=== PATIENT | female | born 1945 | race Caucasian/White ===

== ENCOUNTER 2016-08-19 10:50 | Outpatient (CLI) | payer MEDICARE, OTHER | END 2016-08-19 10:51 | disposition home or self-care (01) | DX: I12.9 Hypertensive chronic kidney disease with stage 1 through stage 4 chronic kidney disease, or unspecified chronic kidney disease (principal); Z79.899 Other long term (current) drug therapy; N18.9 Chronic kidney disease, unspecified; M25.50 Pain in unspecified joint; M85.80 Other specified disorders of bone density and structure, unspecified site; E78.5 Hyperlipidemia, unspecified; E03.9 Hypothyroidism, unspecified; M10.9 Gout, unspecified; R25.1 Tremor, unspecified ==

== ENCOUNTER 2016-09-01 09:49 | Outpatient (CLI) | payer MEDICARE, OTHER | END 2016-09-01 09:50 | disposition home or self-care (01) | DX: Z71.3 Dietary counseling and surveillance (principal); N18.3 Chronic kidney disease, stage 3 (moderate); Z68.42 Body mass index [BMI] 45.0-49.9, adult ==

== ENCOUNTER 2016-09-26 | Outpatient (CLI) | payer MEDICARE, OTHER | END 2016-09-26 10:08 | disposition home or self-care (01) ==

== ENCOUNTER 2016-10-07 10:58 | Outpatient (CLI) | payer MEDICARE, OTHER | END 2016-10-07 10:59 | disposition home or self-care (01) | DX: N18.9 Chronic kidney disease, unspecified (principal) ==

== ENCOUNTER 2017-10-16 09:57 | Outpatient (CLI) | payer MEDICARE, OTHER ==
[2017-10-16 10:17] LABS: BASOPHILS # (AUTO) 0.1 10^3/uL (0.0-0.1); BASOPHILS % (AUTO) 0.9 %; EOSINOPHILS # (AUTO) 0.4 10^3/uL (0.0-0.7); EOSINOPHILS % (AUTO) 5.6 %; HGB - HEMOGLOBIN 14.4 g/dL (12.0-16.0); LYMPHOCYTES # (AUTO) 1.5 10^3/uL (1.5-3.5); LYMPHOCYTES % (AUTO) 20.3 %; MEAN CORPUSCULAR HEMOGLOBIN 29.5 pg (27.0-31.0); MEAN CORPUSCULAR VOLUME 89.4 fL (81.0-99.0); MEAN PLATELET VOLUME 9.1 fL (7.9-10.8); MONOCYTES # (AUTO) 0.7 10^3/uL (0.0-1.0); MONOCYTES % (AUTO) 9.2 %; NEUTROPHILS # (AUTO) 4.6 10^3/uL (1.5-6.6); PLT - PLATELET COUNT 171 10^3/uL (130-450); RED BLOOD COUNT 4.88 10^6/uL (4.20-5.40); RED CELL DISTRIBUTION WIDTH 16.6 % (12.0-15.0); WHITE BLOOD COUNT 7.2 x10^3/uL (4.8-10.8)
[2017-10-16 10:44] LABS: ALBUMIN/GLOBULIN RATIO 1.2 (1.0-2.2); ALKALINE PHOSPHATASE 64 IU/L (42-121); ALT ALANINE AMINOTRANSFERASE 15 IU/L (10-60); AMYLASE 89 U/L (28-100); AST ASPARTATE AMINOTRANSFERASE 22 IU/L (10-42); BILIRUBIN,TOTAL 1.1 mg/dL (0.2-1.0); BUN - BLOOD UREA NITROGEN 27 mg/dL (6-20); CALCIUM 9.4 mg/dL (8.5-10.3); CARBON DIOXIDE - CO2 23 mmol/L (21-32); CHLORIDE 106 mmol/L (101-111); CHOL/HDL RATIO 4.8 (<4.4); CHOLESTEROL 221 mg/dL; CREATININE 1.3 mg/dL (0.4-1.0); GFR - MDRD 40 (>89); GLUCOSE 100 mg/dL (70-100); HDL CHOLESTEROL 46 mg/dL; LDL CHOLESTEROL,CALCULATED 154 mg/dL; LDL/HDL RATIO 3.3 (<4.4); LIPASE 35 U/L (22-51); SODIUM 137 mmol/L (135-145); TOTAL PROTEIN 7.4 g/dL (6.7-8.2); URIC ACID 4.7 mg/dL (2.6-7.2); VLDL CHOLESTEROL 21 mg/dL
[2017-10-16 10:54] LABS: BILIRUBIN,URINE NEGATIVE (NEGATIVE); GLUCOSE, URINE (UA) NEGATIVE (NEGATIVE); KETONES,URINE (UA) NEGATIVE (NEGATIVE); LEUKOCYTE ESTERASE, URINE NEGATIVE (NEGATIVE); NITRITE,URINE NEGATIVE (NEGATIVE); OCCULT BLOOD,URINE TRACE-LYSE (NEGATIVE); PH,URINE 5.5 PH (5.0-7.5); PROTEIN,URINE NEGATIVE (NEGATIVE); UROBILINOGEN,URINE 0.2 (NORMAL) E.U./dL (NORMAL)
[2017-10-16 10:55] LABS: CLARITY,URINE CLEAR (CLEAR)
== END 2017-10-16 09:58 | disposition home or self-care (01) ==
LOC: LAB 09:57
PROVIDERS: ATTEND Internal Medicine
DX: N18.9 Chronic kidney disease, unspecified (principal); Z12.11 Encounter for screening for malignant neoplasm of colon; Z12.12 Encounter for screening for malignant neoplasm of rectum; Z79.899 Other long term (current) drug therapy; M23.50 Chronic instability of knee, unspecified knee; E55.9 Vitamin D deficiency, unspecified; E78.3 Hyperchylomicronemia; E03.9 Hypothyroidism, unspecified; M10.9 Gout, unspecified; R10.9 Unspecified abdominal pain; R11.2 Nausea with vomiting, unspecified; I12.9 Hypertensive chronic kidney disease with stage 1 through stage 4 chronic kidney disease, or unspecified chronic kidney disease
CPT/HCPCS: 36415; 80053; 80061; 81001; 81003; 82150; 83690; 83721; 84443; 84550; 85025; 87086

== ENCOUNTER 2017-10-19 12:40 | Outpatient (CLI) | payer MEDICARE, OTHER ==
--- NOTE | 2017-10-20 17:51 | Mammography Report ---
DIGITAL SCREENING MAMMOGRAM: 10/19/2017 CLINICAL INDICATION: A 71-year-old with a family history of breast cancer for screening. COMPARISON: 08/2015, 08/2014, 06/2013, 03/2012. TECHNIQUE: Routine CC and MLO projections were obtained of the breasts. FINDINGS: The breasts demonstrate scattered fibroglandular densities bilaterally. In the right inner anterior breast, there is a possible circumscribed nodule. Further evaluation with spot compression views and possible ultrasound is recommended. No mammographically suspicious findings are appreciated in the left breast. IMPRESSION: INCOMPLETE EXAMINATION. RECOMMENDATION: Additional evaluation of the right breast as above. BIRADS category 0 incomplete. STANDARD QUALIFYING STATEMENTS 1. This examination was reviewed with the aid of Computed-Aided Detection (CAD). 2. A negative or benign imaging report should not delay biopsy if clinically suspicious findings are present. Consider surgical consultation if warranted. More than 5% of cancers are not identified by imaging. 3. Dense breasts may obscure an underlying neoplasm. TD: 10/20/2017 17:50
== END 2017-10-19 12:41 | disposition home or self-care (01) ==
LOC: DI 12:40
PROVIDERS: ATTEND Internal Medicine
DX: Z12.31 Encounter for screening mammogram for malignant neoplasm of breast (principal); R92.8 Other abnormal and inconclusive findings on diagnostic imaging of breast; Z80.3 Family history of malignant neoplasm of breast
CPT/HCPCS: 77067

== ENCOUNTER 2017-10-28 18:58 | Outpatient (CLI) | payer MEDICARE, OTHER ==
--- NOTE | 2017-10-29 10:48 | Ultrasound Report ---
COMPLETE ABDOMINAL ULTRASOUND: 10/28/2017 CLINICAL INDICATION: Pain. TECHNIQUE: Real-time scanning was performed with enrollment representative static images obtained. FINDINGS: The liver measures 13.6 cm. Hepatic echogenicity is increased, compatible with fatty infiltration. No focal parenchymal lesion or intrahepatic biliary dilatation is seen. The common bile duct measures 7 mm. Multiple calculi are seen in an otherwise unremarkable gallbladder. The pancreas is obscured by bowel gas. The right kidney measures 11.9 cm, and demonstrates a 5.6 cm cyst. No hydronephrosis is present. The left kidney measures 9.3 cm, and appears unremarkable. The spleen measures 11.1 cm, and demonstrates normal echotexture. The abdominal aorta is normal in caliber. The inferior vena cava is unremarkable. No free fluid is present. IMPRESSION: CHOLELITHIASIS, WITHOUT EVIDENCE OF ACUTE CHOLECYSTITIS OR BILIARY DILATATION. FATTY INFILTRATION OF THE LIVER. INCIDENTAL RIGHT RENAL CYST. TD: 10/29/2017 10:47
== END 2017-10-28 18:59 | disposition home or self-care (01) ==
LOC: DI 18:58
PROVIDERS: ATTEND Internal Medicine
DX: K80.20 Calculus of gallbladder without cholecystitis without obstruction (principal); K76.0 Fatty (change of) liver, not elsewhere classified
CPT/HCPCS: 76700

== ENCOUNTER 2018-01-19 10:07 | Outpatient (CLI) | payer MEDICARE, OTHER ==
--- NOTE | 2018-01-19 12:09 | Mammography Report ---
Procedure Date: 01/19/2018 Accession Number: [id number] / [id number] Procedure: SHANNON - Diag Special Views Dig RT CPT Code: FULL RESULT: EXAM: ADDITIONAL MAMMOGRAPHIC VIEWS RIGHT BREAST AND RIGHT BREAST ULTRASOUND DATE: 01/19/2018 10:43 AM CLINICAL HISTORY: Follow-up abnormal density right breast on mammogram of 10/19/2017 TECHNIQUE: Unilateral right spot CC and MLO projections and a true lateral projection. Real-time ultrasound scanning of the right breast with saved static images reviewed. COMPARISON: 10/19/2017 FINDINGS: Right mammogram: The nodular density described on the prior mammogram report persists on additional views. Right breast ultrasound: Scanning is performed of the right breast from the 12 to 2:00 position. Corresponding to the mammographic abnormality in the 2:00 position 4 cm from the nipple is a 5 x 3 x 5 mm simple cyst. An additional simple cyst is seen in the 12:30 position 5 cm from the nipple measuring 3 mm in diameter. No solid masses are seen. IMPRESSION: Benign findings right breast RECOMMENDATION: Return to routine screening in 12 months. BIRADS CATEGORY 2: Benign findings STANDARD QUALIFYING STATEMENTS: 1. This examination was reviewed with the aid of Computer-Aided Detection (CAD). 2. A negative or benign imaging report should not delay biopsy if clinically suspicious findings are present. Consider surgical consultation if warrented. More than 5% of cancers are not identified by imaging. 3. Dense breasts may obscure an underlying neoplasm.
== END 2018-01-19 10:08 | disposition home or self-care (01) ==
LOC: DI 10:07
PROVIDERS: ATTEND Internal Medicine
DX: N60.11 Diffuse cystic mastopathy of right breast (principal)
CPT/HCPCS: 76642

== ENCOUNTER 2018-11-10 10:50 | Outpatient (CLI) | payer MEDICARE, OTHER ==
[2018-11-10 11:08] LABS: BASOPHILS # (AUTO) 0.1 10^3/uL (0.0-0.1); EOSINOPHILS # (AUTO) 0.2 10^3/uL (0.0-0.7); EOSINOPHILS % (AUTO) 2.9 %; HGB - HEMOGLOBIN 13.7 g/dL (12.0-16.0); LYMPHOCYTES # (AUTO) 1.3 10^3/uL (1.5-3.5); LYMPHOCYTES % (AUTO) 20.4 %; MEAN CORPUSCULAR HEMOGLOBIN 28.3 pg (27.0-31.0); MEAN CORPUSCULAR HGB CONC 32.2 g/dL (32.0-36.0); MEAN CORPUSCULAR VOLUME 87.9 fL (81.0-99.0); MEAN PLATELET VOLUME 8.7 fL (7.9-10.8); MONOCYTES # (AUTO) 0.6 10^3/uL (0.0-1.0); MONOCYTES % (AUTO) 10.2 %; NEUTROPHILS # (AUTO) 4.1 10^3/uL (1.5-6.6); NEUTROPHILS % (AUTO) 64.5 %; PLT - PLATELET COUNT 179 10^3/uL (130-450); RED BLOOD COUNT 4.83 10^6/uL (4.20-5.40); RED CELL DISTRIBUTION WIDTH 16.4 % (12.0-15.0); WHITE BLOOD COUNT 6.3 x10^3/uL (4.8-10.8)
[2018-11-10 11:13] LABS: BILIRUBIN,URINE NEGATIVE (NEGATIVE); GLUCOSE, URINE (UA) NEGATIVE (NEGATIVE); KETONES,URINE (UA) NEGATIVE (NEGATIVE); LEUKOCYTE ESTERASE, URINE NEGATIVE (NEGATIVE); NITRITE,URINE NEGATIVE (NEGATIVE); OCCULT BLOOD,URINE TRACE-INTA (NEGATIVE); PROTEIN,URINE NEGATIVE (NEGATIVE); UROBILINOGEN,URINE 0.2 (NORMAL) E.U./dL (NORMAL)
[2018-11-10 11:15] LABS: CLARITY,URINE CLEAR (CLEAR)
[2018-11-10 11:33] LABS: ALBUMIN 3.8 g/dL (3.2-5.5); ALBUMIN/GLOBULIN RATIO 1.2 (1.0-2.2); ALKALINE PHOSPHATASE 65 IU/L (42-121); ALT ALANINE AMINOTRANSFERASE 16 IU/L (10-60); AST ASPARTATE AMINOTRANSFERASE 22 IU/L (10-42); BILIRUBIN,TOTAL 1.6 mg/dL (0.2-1.0); BUN - BLOOD UREA NITROGEN 23 mg/dL (6-20); CALCIUM 9.5 mg/dL (8.5-10.3); CARBON DIOXIDE - CO2 25 mmol/L (21-32); CHLORIDE 104 mmol/L (101-111); CHOL/HDL RATIO 4.7 (<4.4); CHOLESTEROL 218 mg/dL; CREATININE 1.2 mg/dL (0.4-1.0); GFR - MDRD 44 (>89); GLUCOSE 106 mg/dL (70-100); HDL CHOLESTEROL 46 mg/dL; LDL CHOLESTEROL,CALCULATED 140 mg/dL; MAGNESIUM 1.9 mg/dL (1.7-2.8); SODIUM 137 mmol/L (135-145); TOTAL PROTEIN 7.1 g/dL (6.7-8.2); URIC ACID 4.8 mg/dL (2.6-7.2); VLDL CHOLESTEROL 32 mg/dL
== END 2018-11-10 10:51 | disposition home or self-care (01) ==
LOC: LAB 10:50
PROVIDERS: ATTEND Internal Medicine
DX: Z12.11 Encounter for screening for malignant neoplasm of colon (principal); Z79.899 Other long term (current) drug therapy; Z12.12 Encounter for screening for malignant neoplasm of rectum; Z13.6 Encounter for screening for cardiovascular disorders; K76.0 Fatty (change of) liver, not elsewhere classified; N18.9 Chronic kidney disease, unspecified; R23.1 Pallor; E78.5 Hyperlipidemia, unspecified; E03.9 Hypothyroidism, unspecified; M10.9 Gout, unspecified; R25.2 Cramp and spasm; I12.9 Hypertensive chronic kidney disease with stage 1 through stage 4 chronic kidney disease, or unspecified chronic kidney disease
CPT/HCPCS: 36415; 80053; 80061; 81001; 81003; 83721; 83735; 84443; 84550; 85025; 87086

== ENCOUNTER 2018-11-17 08:00 | Outpatient (CLI) | payer MEDICARE, OTHER | END 2018-11-17 23:59 | disposition home or self-care (01) | LOC: LAB.R 08:00 | PROVIDERS: ATTEND Internal Medicine | DX: Z12.11 Encounter for screening for malignant neoplasm of colon (principal); Z12.12 Encounter for screening for malignant neoplasm of rectum; I10 Essential (primary) hypertension; E78.5 Hyperlipidemia, unspecified; N18.9 Chronic kidney disease, unspecified; R25.2 Cramp and spasm; K76.0 Fatty (change of) liver, not elsewhere classified; Z13.6 Encounter for screening for cardiovascular disorders; E03.9 Hypothyroidism, unspecified; M10.9 Gout, unspecified; R23.1 Pallor; Z79.899 Other long term (current) drug therapy | CPT/HCPCS: 82274 ==

== ENCOUNTER 2019-09-29 08:01 | Day surgery (SDC) | payer MEDICARE, OTHER ==
[~2019-09-29 08:01] MED LIST: BRIMONIDINE 0.2% OPHTH DROPS 5 ML ONE; BSS/LIDOCAINE/EPINEPHRINE 1 ML SYRINGE ONE; CYCLOPENTOLATE 1% OPHTH DROPS 2 ML ONE; KETOROLAC 0.45% OPHTH DROPS ONE; PHENYLEPHRINE 2.5% OPHTH 2 ML DROPS ONE; PROPARACAINE 0.5% OPHTH DROPS 15 ML ONE; TRIAMCIN/MOXIFLOX OPHTHALMIC 0.6 ML VIAL IO ONE; VANCOMYCIN OPHTHALMI 8MG/0.8ML 8 MG/0.8 ML SYRINGE IO ONE; timoloL maleate 0.5% OPHTH DROPS (10ML) ONE
[2019-09-29] MEDS ORDERED: LACTATED RINGERS 500 ML IV ONE (08:46)
[2019-09-29] MEDS ORDERED: CYCLOPENTOLATE 1% OPHTH DROPS 2 ML RIGHTEYE ONE (09:00)
[2019-09-29] MEDS ORDERED: KETOROLAC 0.45% OPHTH DROPS RIGHTEYE ONE (09:00)
[2019-09-29] MEDS ORDERED: PROPARACAINE 0.5% OPHTH DROPS 15 ML RIGHTEYE ONE ×2 (09:00→09:56)
[2019-09-29] MEDS ORDERED: PHENYLEPHRINE 2.5% OPHTH 2 ML DROPS RIGHTEYE ONE (09:00)
--- NOTE | 2019-09-29 09:14 | ANESTHESIA ---
Pre-Anesthesia VS, & Labs - Diagnosis Right senile combined cataract - Procedure Right phaco with IOL implant Height 4 ft 11 in Body Mass Index 44.4 - NPO Other (Water at 0800) - Is Patient ?: No Home Medications and Allergies Home Medications: Ambulatory Orders Allopurinol [Zyloprim] 100 mg PO DAILY 09/28/19 Levothyroxine [Synthroid] 75 mcg PO DAILY 09/28/19 Losartan [Cozaar] 50 mg PO DAILY 09/28/19 Metoprolol Succinate [Toprol Xl] 25 mg PO BID 09/28/19 cloNIDine [Catapres] 0.1 mg PO BID 09/28/19 Allopurinol [Zyloprim] 100 mg PO DAILY 09/28/19 Levothyroxine [Synthroid] 75 mcg PO DAILY 09/28/19 Losartan [Cozaar] 50 mg PO DAILY 09/28/19 Metoprolol Succinate [Toprol Xl] 25 mg PO BID 09/28/19 cloNIDine [Catapres] 0.1 mg PO BID 09/28/19 Allergies/Adverse Reactions: Allergies Allergy/AdvReac Type Severity Reaction Status Date / Time Sulfa (Sulfonamide AdvReac Unknown Verified 09/28/19 14:03 Antibiotics) Anes History & Medical History - Anesthetic History Anesthesia Complications: reports: No previous complications Family history of Anesthesia Complications: Denies Family history of Malignant Hyperthermia: Denies - Medical History Cardiovascular: reports: Hypertension Pulmonary: reports: None Gastrointestinal: reports: None Urinary: reports: Incontinence Neuro: reports: None Musculoskeletal: reports: Osteoarthritis Endocrine/Autoimmune: reports: HyPOthyroidism Blood Disorders: reports: None Skin: reports: None Smoking Status: Former smoker - Surgical History General: Cholecystectomy Eyes Ears Nose Throat (EENT): Tonsil/Adenoidectomy Gynecologic: Hysterectomy Exam General: Alert Dental: WNL, Partials Upper Mouth Opening: Greater than 4 Fingerbreadths Neck Mobility: Normal Mallampati classification: I Thyromental Distance: greater than 6 cm Respiratory: Lungs clear Cardiovascular: Regular rate Neurological: Normal speech Mental/Cognitive Status: Alert/Oriented X3 Cognitive Status: Within normal limits Plan Anesthesia Type: MAC Consent for Procedure(s) Verified and Reviewed: Yes Code Status: Attempt Resuscitation ASA classification: 2-Mild systemic disease Is this case an emergency?: No
[2019-09-29] MEDS ORDERED: MIDAZOLAM 2 MG/2 ML VIAL IVP ONE (09:43)
[2019-09-29] MEDS ORDERED: LIDOCAINE-MPF 2% 5 ML VIAL IM ONE (09:43)
[2019-09-29] MEDS ORDERED: PROPOFOL 200 MG/20 ML VIAL IVP ONE (09:43)
[2019-09-29] MEDS ORDERED: EPINEPHrine 1 MG/ML AMP IVP ONE (09:54)
[2019-09-29] MEDS ORDERED: BRIMONIDINE 0.2% OPHTH DROPS 5 ML OPTH ONE (09:54)
[2019-09-29] MEDS ORDERED: CHONDR SULF/HYALURONATE SYRINGE IO ONE (09:55)
[2019-09-29] MEDS ORDERED: BSS/LIDOCAINE/EPINEPHRINE 1 ML SYRINGE IO ONE (09:55)
[2019-09-29] MEDS ORDERED: TIMOLOL 0.5% OPHTH DROPS OPTH ONE (09:55)
[2019-09-29] MEDS ORDERED: TRIAMCIN/MOXIFLOX OPHTHALMIC 0.6 ML VIAL IO ONE (09:56)
[2019-09-29] MEDS ORDERED: VANCOMYCIN OPHTHALMI 8MG/0.8ML 8 MG/0.8 ML SYRINGE IO ONE (09:56)
[2019-09-29] MEDS ORDERED: fentaNYL 100 MCG/2 ML VIAL ONE (10:11)
--- NOTE | 2019-09-29 10:15 | OPERATIVE REPORT ---
DATE OF SERVICE: 09/29/2019 Physician: Jigar Gamboa MD PREOPERATIVE DIAGNOSIS: Visually significant cataract, right eye. This was her first cataract surgery. POSTOPERATIVE DIAGNOSIS: Visually significant cataract, right eye. This was her first cataract surgery. DESCRIPTION OF PROCEDURE: Phacoemulsification with posterior chamber intraocular lens implant, right eye. SURGEON: Jigar Gamboa MD ANESTHESIA: Monitored anesthesia care. COMPLICATIONS: None. 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 Best corrected visual acuity was 20/50 with glare to hand motion vision in the right eye. Indications for surgery were overall decrease in vision, difficulty seeing words on a computer screen, difficulty reading, difficulty seeing words, closed caption or game scores on TV, difficulty seeing street signs, difficulty driving in low light or at night, difficulty driving at night because of headlights from other vehicles, and difficulty with glare or bright lights in any situation. She was consented at length concerning risks and benefits of cataract surgery, after which she expressed a desire to proceed with surgery. OPERATIVE PROCEDURE: The patient was taken to OR #3 and placed under monitored anesthesia care. A surgical timeout was conducted confirming correct patient, correct procedure, and correct surgical site. She was given topical anesthesia, and prepped and draped in the usual sterile fashion. The eye was entered at the 12 and 9 o'clock positions. Intracameral Shugarcaine was injected into the anterior chamber followed by Viscoat. A continuous-tear curvilinear capsulorrhexis was performed. The nucleus was hydrodissected and phacoemulsified. The cortex was evacuated using automated infusion and aspiration. Provisc was injected in the capsular bag and a 21.5 diopter intraocular lens was inserted into the bag. Infusion and aspiration was used to evacuate the viscoelastic materials. The eye was inflated to physiologic pressure using balanced salt solution and found to be watertight. Approximately 0.25 mL of a mixture of triamcinolone and moxifloxacin was injected transsclerally into the vitreous in the inferotemporal quadrant. An additional 0.55 mL of a mixture of triamcinolone, moxifloxacin, and vancomycin was injected subconjunctivally injected subconjunctivally in the superior quadrant for infection and inflammation prophylaxis. Wound integrity was checked with Weck- Lotus sponges. Patient was taken from the operating room in good condition and given postoperative instructions. TD: 09/29/2019 10:09 [place]
[2019-09-29] MEDS ORDERED: hydrALAZINE INJ 20 MG/ML VIAL ONE (10:18)
[2019-09-29 10:44] VITALS: BP 133/51
== END 2019-09-29 08:02 | disposition home or self-care (01) ==
LOC: SDS 08:01
PROVIDERS: ATTEND Ophthalmology
PROC: 08RJ3JZ Replacement of Right Lens with Synthetic Substitute, Percutaneous Approach (ICD-10-PCS; principal; 2019-09-29 10:30)
DX: H25.11 Age-related nuclear cataract, right eye (principal); I12.9 Hypertensive chronic kidney disease with stage 1 through stage 4 chronic kidney disease, or unspecified chronic kidney disease; N18.3 Chronic kidney disease, stage 3 (moderate); E03.9 Hypothyroidism, unspecified; M10.9 Gout, unspecified; R25.1 Tremor, unspecified; Z79.82 Long term (current) use of aspirin; Z87.891 Personal history of nicotine dependence
CPT/HCPCS: 66984; A9270; J3490; V2632

== ENCOUNTER 2020-01-03 08:49 | Outpatient (CLI) | payer MEDICARE, OTHER | END 2020-01-03 08:50 | disposition home or self-care (01) | LOC: LAB 08:49 | PROVIDERS: ATTEND Ophthalmology | DX: Z01.812 Encounter for preprocedural laboratory examination (principal); H25.12 Age-related nuclear cataract, left eye | CPT/HCPCS: 81599 ==

== ENCOUNTER 2021-10-10 15:01 | Outpatient (CLI) | payer MEDICARE, OTHER | END 2021-10-10 15:02 | disposition home or self-care (01) | LOC: LAB 15:01 | PROVIDERS: ATTEND Internal Medicine | DX: E03.9 Hypothyroidism, unspecified (principal) | CPT/HCPCS: 36415; 84443 ==